=== PATIENT | male | born 1985 | race African-American/Black ===

== ENCOUNTER 2017-04-14 15:54 | Emergency (ER) | payer BC ==
[2017-04-14 16:08] VITALS: BP 129/74
--- NOTE | 2017-04-14 16:11 | EDM.PDOC ---
ED HPI GENERAL MEDICAL PROBLEM - General Chief Complaint: Back Pain or Injury Stated Complaint: BACK PAIN Time Seen by Provider: 04/14/17 16:11 Source of Information: Reports: Patient History Limitations: Reports: No Limitations - History of Present Illness INITIAL COMMENTS - FREE TEXT/NARRATIVE: HISTORY AND PHYSICAL: Chest wall pain History of present illness: Patient is a 31-year-old male who presents to the emergency room with complaints of right posterior chest wall pain 5 days. He reports that he was helping a friend move some heavy furniture approximately 5 days ago started noticing pain in his upper back. He states this has progressively gotten worse as he performs movements, coughs or lifts with his right arm. While sitting at rest he states that the upper back/chest wall does not hurt. He denies any fever, chills, shortness of breath, nausea, vomiting or diarrhea. He denies any recent injury or trauma. No previous injury or surgeries to the affected extremity. Review of systems: As per history of present illness and below otherwise all systems reviewed and negative. Past medical history: As per history of present illness and as reviewed below otherwise noncontributory. Surgical history: As per history of present illness and as reviewed below otherwise noncontributory. Social history: No reported history of drug or alcohol abuse. Family history: As per history of present illness and as reviewed below otherwise noncontributory. Physical exam: Gen.: Well-developed and well-nourished 31-year-old -[place] male. Appears nontoxic and in no acute distress. Alert and oriented. HEENT: Atraumatic, normocephalic, pupils reactive, negative for conjunctival pallor or scleral icterus, mucous membranes moist, throat clear, neck supple, nontender, trachea midline. Lungs: Clear to auscultation, breath sounds equal bilaterally, chest nontender. Heart: S1S2, regular, negative for clicks, rubs, or JVD. Abdomen: Soft, nondistended, nontender. Negative for masses or hepatosplenomegaly. Negative for costovertebral tenderness. Pelvis: Stable nontender. Genitourinary: Deferred. Rectal: Deferred. Back: No cervical spine or back pinpoint vertebral tenderness/pain with palpation. No crepitus, or obvious deformities or step-offs. Patient is able to walk on his toes and heels without difficulty. Extremities: Atraumatic, moves all extremities per self. Increased pain with range of motion above the shoulder plain of the right upper extremity. Denies any numbness or tingling to the affected extremity. Radial pulse, capillary refill less than 3 seconds. No weakness to the affected extremity. Neurovascular unremarkable. Skin: Intact, warm, dry. No open sores, rashes or lesions. Neuro: Awake, alert, oriented. Cranial nerves II through XII unremarkable. Cerebellum unremarkable. Motor and sensory unremarkable throughout. Exam nonfocal. X-ray does not show any acute fractures in the lung chanel are clear. The symptoms patient is describing correlate with a muscular strain. We discussed gentle stretching and heat to the area along with taking his prescribed medications. Prescription for Robaxin 500 mg 1 tab twice a day, dispense 10 with no refills. Cataflam 50 mg 1 tab 3 times a day as needed dispense 20 no refills. We discussed follow-up with his primary care provider. He is agreeable to plan of care and denies any further questions at this time. Diagnostics: Chest x-ray Therapeutics: Toradol, Norflex Impression: Muscular strain Plan: 1. Robaxin, muscle relaxer, one tab twice daily as needed for muscle spasms. Do not take while needing to drive or while at work, as it may cause drowsiness. Cataflam, an anti-inflammatory, can be taken up to 3 times a day as needed for pain relief. Do not take any additional NSAIDs such as ibuprofen or Aleve while using this medication. If you need anything additional for pain management, you may take Tylenol [id number]. 2. Gentle heat and stretching to the area. 3. Follow-up with your primary care provider in the next 1-2 days. Return to the ED as needed and as discussed. Definitive disposition and diagnosis as appropriate pending reevaluation and review of above. Duration: Day(s): Location: Reports: Chest Quality: Reports: Sharp Improves with: Reports: Rest Worsens with: Reports: Movement Associated Symptoms: Reports: No Other Symptoms right upper back Pain Score (Numeric/FACES): 9 - Related Data Allergies Allergy/AdvReac Type Severity Reaction Status Date / Time No Known Allergies Allergy Verified 04/14/17 15:58 Home Meds: Home Meds . [No Known Home Meds] 04/14/17 [History] Past Medical History - Past Health History Medical/Surgical History: Denies Medical/Surgical History - Infectious Disease History Infectious Disease History: Reports: Chicken Pox Other Infectious Disease History: childhood Social & Family History - Family History Family Medical History: Noncontributory - Tobacco Use Smoking Status *Q: Never Smoker Years of Tobacco use: 0 Packs/Tins Daily: 0.1 - Alcohol Use Days Per Week of Alcohol Use: 1 Number of Drinks Per Day: 1 Total Drinks Per Week: 1 - Recreational Drug Use Recreational Drug Use: No Drug Use in Last 12 Months: Yes Recreational Drug Type: Reports: Marijuana/Hashish ED ROS GENERAL - Review of Systems Review Of Systems: ROS reveals no pertinent complaints other than HPI. ED EXAM,LOWER BACK PAIN/INJURY - Physical Exam Exam: See Below (See dictation) Course - Vital Signs Last Recorded V/S: Last Vital Signs Temp 98.4 F 04/14/17 15:54 Pulse 76 04/14/17 15:54 Resp 18 04/14/17 15:54 BP 129/74 04/14/17 15:54 Pulse Ox 96 04/14/17 15:54 - Orders/Labs/Meds Orders: Active Orders 24 hr Category Date Time Status Chest 2V [CR] Stat Exams 04/14/17 16:19 Taken Orphenadrine [Norflex] Med 04/14/17 16:30 Active 60 mg IM Q12H Medication Orders Orphenadrine Citrate (Norflex) 60 mg IM Q12H LISA Last Admin: 04/14/17 16:29 Dose: 60 mg Meds: Medications Generic Name Dose Route Start Last Admin Trade Name Freq PRN Reason Stop Dose Admin Orphenadrine Citrate 60 mg 04/14/17 16:30 04/14/17 16:29 Norflex IM 60 mg Q12H LISA Administration Discontinued Medications Generic Name Dose Route Start Last Admin Trade Name Freq PRN Reason Stop Dose Admin Ketorolac Tromethamine 60 mg 04/14/17 16:19 04/14/17 16:29 Toradol IM 04/14/17 16:20 60 mg ONETIME ONE Administration Departure - Departure Time of Disposition: 17:22 Disposition: Home, Self-Care 01 Clinical Impression: Muscle strain of chest wall Qualifiers: Encounter type: initial encounter Qualified Code(s): S29.011A - Strain of muscle and tendon of front wall of thorax, initial encounter - Discharge Information Instructions: Muscle Strain, [id number], Back Pain, Adult, [id number] Referrals: PCP,None [Primary Care Provider] - Forms: ED Department Discharge Additional Instructions: My general discharge The following information is given to patients seen in the emergency department who are being discharged to home. This information is to outline your options for follow-up care. We provide all patients seen in our emergency department with a follow-up referral. The need for follow-up, as well as the timing and circumstances, are variable depending upon the specifics of your emergency department visit. If you don't have a primary care physician on staff, we will provide you with a referral. We always advise you to contact your personal physician following an emergency department visit to inform them of the circumstance of the visit and for follow-up with them and/or the need for any referrals to a consulting specialist. The emergency department will also refer you to a specialist when appropriate. This referral assures that you have the opportunity for follow-up care with a specialist. All of these measure are taken in an effort to provide you with optimal care, which includes your follow-up. Under all circumstances we always encourage you to contact your private physician who remains a resource for coordinating your care. When calling for follow-up care, please make the office aware that this follow-up is from your recent emergency room visit. If for any reason you are refused follow-up, please contact the [facility] Emergency Department at and asked to speak to the emergency department charge nurse. [facility] [address] [place] [id number] 1. Robaxin, muscle relaxer, one tab twice daily as needed for muscle spasms. Do not take while needing to drive or while at work, as it may cause drowsiness. Cataflam, an anti-inflammatory, can be taken up to 3 times a day as needed for pain relief. Do not take any additional NSAIDs such as ibuprofen or Aleve while using this medication. If you need anything additional for pain management, you may take Tylenol [id number]. 2. Gentle heat and stretching to the area. 3. Follow-up with your primary care provider in the next 1-2 days. Return to the ED as needed and as discussed. - My Orders Last 24 Hours: My Active Orders 04/14/17 16:19 Chest 2V [CR] Stat 04/14/17 16:30 Orphenadrine [Norflex] 60 mg IM Q12H - Assessment/Plan Last 24 Hours: My Active Orders 04/14/17 16:19 Chest 2V [CR] Stat 04/14/17 16:30 Orphenadrine [Norflex] 60 mg IM Q12H
[2017-04-14] MEDS ORDERED: Ketorolac 60 MG/2 ML SDV IM ONE (16:19)
--- NOTE | 2017-04-15 10:07 | CR ---
EXAM DATE: 04/14/17 PATIENT'S AGE: 31 Patient: ADELA BROWN Facility: [place], [place] Site . Site : 1985 Study: XRay Chest [id number]/29/2017 4:58:15 PM Ordering Physician: Doctor Camacho Final Report: INDICATION: PAIN/SOB TECHNIQUE: Chest 2 views COMPARISON: None FINDINGS: Cardiovascular and mediastinum: Heart size and vasculature are normal in caliber and appearance. Mediastinum is within normal limits. Lungs and pleural spaces: No focal consolidation. No sign of pleural effusion. No pneumothorax. Bones and soft tissues: No significant findings. IMPRESSION: No acute cardiopulmonary disease. Dictated by Сергей Painting MD @ 04/14/2017 5:18:40 PM Dictated by: Сергей Painting MD @ 04/14/2017 17:18:54 (Electronic Signature) Report Signed by Proxy. [facility] SYSTEMNoel
== END 2017-04-14 18:08 | disposition home or self-care (01) ==
LOC: MW.ED 15:54
DX: S29.011A Strain of muscle and tendon of front wall of thorax, initial encounter (principal); X50.0XXA Overexertion from strenuous movement or load, initial encounter
CPT/HCPCS: 71020; 96372; 99283; J1885; J2360